=== PATIENT | male | born 1980 | race Caucasian/White ===

== ENCOUNTER 2020-01-02 22:14 | Emergency (ER) | payer OTHER ==
[~2020-01-02] VITALS: Ht 172.7 cm; Wt 79.4 kg
[2020-01-02] MEDS ORDERED: ZITHROMAX500 MG PO (23:37)
== END 2020-01-02 23:36 | disposition home or self-care (01) ==
LOC: ER 22:14
DX: A54.09 Other gonococcal infection of lower genitourinary tract (principal)

== ENCOUNTER 2020-01-05 20:37 | Emergency (ER) | payer OTHER ==
[~2020-01-05] VITALS: Ht 170.2 cm; Wt 72.6 kg
[~2020-01-05 20:37] MED LIST: ZITHROMAX500 MG PO
[2020-01-05] MEDS ORDERED: BACTRIM DS TAB1 EACH PO (22:18)
== END 2020-01-05 22:23 | disposition home or self-care (01) ==
LOC: ER 20:37
DX: N39.0 Urinary tract infection, site not specified (principal); R30.0 Dysuria

== ENCOUNTER 2021-04-25 15:01 | Emergency (ER) | payer OTHER ==
[~2021-04-25] VITALS: Ht 170.2 cm; Wt 83.9 kg
[~2021-04-25 15:01] MED LIST changes: +BACTRIM DS TAB1 EACH PO
== END 2021-04-25 18:02 | disposition home or self-care (01) ==
LOC: ER 15:01
DX: N48.89 Other specified disorders of penis (principal); A53.9 Syphilis, unspecified

== ENCOUNTER 2021-06-08 19:42 | Emergency (ER) | payer OTHER ==
[~2021-06-08] VITALS: Ht 172.7 cm; Wt 81.6 kg
== END 2021-06-08 21:55 | disposition home or self-care (01) ==
LOC: ER 19:42
DX: N48.89 Other specified disorders of penis (principal)